=== PATIENT | male | born 1950 | race Caucasian/White ===

== ENCOUNTER 2020-11-14 18:34 | Emergency (ER) | payer BC, OTHER ==
[2020-11-14 19:17] LABS: Absolute Lymphocytes (CBC) 0.8 K/uL (0.7-4.9); Basophils % 1.2 % (0-1.3); Hematocrit 26.8 % (39.6-49.0); Lymphocytes % 9.6 % (15.3-44.8); MPV 8.4 fL (7.6-11.3)
[2020-11-14 19:27] LABS: Protime INR 1.28
[2020-11-14 19:40] LABS: AST/SGOT 21 U/L (15-37); Albumin 2.7 g/dL (3.4-5.0); Alkaline Phosphatase 69 U/L (45-117); BUN Blood Urea Nitrogen 19 mg/dL (7-18); Bicarbonate 28 mmol/L (21-32); Bilirubin Direct 0.2 mg/dL (0-0.2); Bilirubin Total 0.7 mg/dL (0.2-1.0); Glucose Level 103 mg/dL (74-106); Magnesium 1.8 mg/dL (1.8-2.4); NT PRO-BNP 952 pg/mL (<125); Potassium 3.3 mmol/L (3.5-5.1); Protein, Total 7.1 g/dL (6.4-8.2); Sodium Level 140 mmol/L (136-145); Troponin (Emerg Dept Use Only) < 0.02 ng/mL (0.0-0.045)
[2020-11-14] MEDS ORDERED: NA CHLORIDE 0.9% 250 ML ONE (19:40)
--- NOTE | 2020-11-14 19:47 | RAD REPORT ---
EXAM DESCRIPTION: RAD - Chest Single View - 11/14/2020 7:10 pm CLINICAL HISTORY: dizziness Chest pain. COMPARISON: No comparisons FINDINGS: Portable technique limits examination quality. Elevated hemidiaphragm is noted related to underlying gaseous distention in the colon. The lungs appe ar grossly clear. Patient is mildly rotated to the left which mildly limits assessment. Heart size is upper limit normal. Right-sided dialysis catheter has tip in the right atrium. IMPRESSION: No acute intrathoracic process suspected.
[2020-11-14 20:00] LABS: ALT/SGPT < 6 U/L (12-78)
--- NOTE | 2020-11-14 21:07 | ER ---
Nurse's Notes [facility] Name: Anthony Patel Age: 70 yrs Sex: Male : 1950 Arrival Date: 11/14/2020 Time: 18:35 Bed 6 Private MD: Diagnosis: Dizziness and giddiness Presentation: 11/14 18:41 Chief complaint: EMS states: Pt c/o dizziness and SOB during dialysis, 300 mL dialyzed, ph COVID positive on 10/30, negative swab approx 2 days ago, upon EMS arrival dizziness and SOB had resolved, 98% RA, HR 110 sinus tach, BP 198/85. Coronavirus screen: The client reports previous COVID testing was negative. Ebola Screen: No symptoms or risks identified at this time. Initial Sepsis Screen: Does the patient meet any 2 criteria? No. Patient's initial sepsis screen is negative. Does the patient have a suspected source of infection? No. Patient's initial sepsis screen is negative. Risk Assessment: Do you want to hurt yourself or someone else? Patient reports no desire to harm self or others. Onset of symptoms was November 14, 2020. 18:41 Method Of Arrival: EMS: [place] [facility] ph 18:41 Acuity: RONAL 3 ph Historical: - Allergies: 18:51 No Known Allergies; ph - Home Meds: 18:51 Carbidopa-Levodopa 1.25 - 5mg/mL 20 mL 3 x day Oral [Active]; Trihexyphenidyl Oral ph [Active]; pantoprazole 40 mg oral TbEC 1 tab 2 times per day [Active]; - PMHx: 18:51 Dialysis; Hypertension; BPH; Parkinsons; ph - Immunization history:: Adult Immunizations unknown. - Social history:: Smoking status: unknown. Screenin:44 Abuse screen: Denies threats or abuse. Denies injuries from another. Nutritional ph screening: No deficits noted. Tuberculosis screening: No symptoms or risk factors identified. Fall Risk None identified. Assessment: 18:52 General: Appears in no apparent distress. slender, Behavior is calm, cooperative, ph appropriate for age. Pain: Denies pain. Neuro: Level of Consciousness is awake, alert, obeys commands, Oriented to person, place, situation, tremor noted, hx of Parkinsons. Cardiovascular: Capillary refill < 3 seconds in bilateral fingers Patient's skin is warm and dry. Dialysis shunt: in the anterior aspect of right upper chest. Respiratory: Airway is patent Respiratory effort is even, unlabored, Respiratory pattern is tachypnea. GI: Reports diarrhea, Patient currently denies abdominal pain. Derm: Skin is intact, Skin is pink, warm \T\ dry. Musculoskeletal: Circulation, motion, and sensation intact. Range of motion: intact in all extremities. 19:50 Reassessment: Patient appears in no apparent distress at this time. Patient and/or mg2 family updated on plan of care and expected duration. Pain level reassessed. Patient is alert, oriented x 3, equal unlabored respirations, skin warm/dry/pink. 20:25 Reassessment: Patient appears in no apparent distress at this time. Patient and/or mg2 family updated on plan of care and expected duration. Pain level reassessed. Patient is alert, oriented x 3, equal unlabored respirations, skin warm/dry/pink. 21:35 Reassessment: from [place] contacted about the transportation and she said she mg2 can't come to [place] to pick her up and he needs to be in an ambulance (stretcher) because he can't tolerate sitting for long time. he is recovering from rhabdomyolysis. 22:14 Reassessment: EMS will come after 2 hours. patient informed about the waiting time. mg2 23:32 Reassessment: report given to [facility] ambulance. patient alert oriented x 4. mg2 Vital Signs: 18:41 BP 139 / 93; Pulse 113; Resp 22; Temp 97.5(O); Pulse Ox 98% on R/A; ph 20:26 BP 136 / 92; Pulse 102; Resp 20; Pulse Ox 98% on 2 lpm NC; mg2 21:30 Pulse Ox 100% on R/A; mg2 23:30 BP 135 / 89; Pulse 95; Resp 18; Pulse Ox 100% on R/A; mg2 ED Course: 18:35 Patient arrived in ED. ds1 18:42 Aldo Gutierrez NP is PHCP. pm1 18:42 Steven Barrett MD is Attending Physician. pm1 18:44 Triage completed. ph 18:45 Arm band placed on Patient placed in an exam room, on a stretcher. ph 18:51 Patient has correct armband on for positive identification. Placed in gown. Bed in low ph position. Call light in reach. Side rails up X 1. telemetry monitor on. Pulse ox on. NIBP on. Door closed. Noise minimized. Warm blanket given. 19:01 Initial lab(s) drawn, by me, sent to lab. Inserted saline lock: 20 gauge in right dh3 antecubital area, using aseptic technique. Blood collected. 19:09 XRAY Chest (1 view) In Process Unspecified. EDMS 19:23 Suhas Romano, RN is Primary Nurse. mg2 19:34 Rina Mcguire ex abhay [phone]. patients mother Efren [phone]. mw2 23:34 No provider procedures requiring assistance completed. IV discontinued, intact, mg2 bleeding controlled, No redness/swelling at site. Pressure dressing applied. Administered Medications: 19:25 Drug: NS 0.9% 250 ml Route: IV; Rate: bolus; Site: right forearm; mg2 21:39 Follow up: Response: No adverse reaction; IV Status: Completed infusion; IV Intake: mg2 250ml Intake: 21:39 IV: 250ml; Total: 250ml. mg2 Outcome: 21:06 Discharge ordered by . pm1 23:34 Discharged to home via ambulance. mg2 23:34 Condition: stable 23:34 Discharge instructions given to patient, EMS, Instructed on discharge instructions, follow up and referral plans. Demonstrated understanding of instructions, follow-up care. 23:34 Patient left the ED. mg2 Signatures: Dispatcher [employer] EDPR Nathaly Sam ds1 Toyin Zacarias RN RN Aldo Gutierrez, DELFINO [employer] pm1 V[facility] Camila Garcia 2 Suhas Romano, RN RN mg2 Corrections: (The following items were deleted from the chart) 22:51 22:14 Reassessment: EMS will come after 2 hours. mg2 mg2
--- NOTE | 2020-11-14 21:07 | EDPHYS ---
Physician Documentation [facility] Name: Anthony Patel Age: 70 yrs Sex: Male : 1950 Arrival Date: 11/14/2020 Time: 18:35 Bed 6 Private MD: JOE Physician Steven Barrett HPI: 11/14 18:46 This 70 yrs old Male presents to ER via EMS with complaints of Dizziness. pm1 18:46 The patient presents with dizziness, and shortness of breath during dialysis. Onset: pm1 The symptoms/episode began/occurred today. Context: occurred dialysis center, occurred while the patient was sitting, just prior to the episode the patient experienced no apparent symptoms. Modifying factors: The symptoms are alleviated by nothing, the symptoms are aggravated by nothing. Associated signs and symptoms: Pertinent positives: shortness of breath, Pertinent negatives: abdominal pain, chest pain, nausea, vomiting. Severity of symptoms: in the emergency department the symptoms have improved. The patient has not experienced similar symptoms in the past. 18:46 Patient reports that they took off more fluids than they typically perform at dialysis .pm1 Historical: - Allergies: 18:51 No Known Allergies; ph - Home Meds: 18:51 Carbidopa-Levodopa 1.25 - 5mg/mL 20 mL 3 x day Oral [Active]; Trihexyphenidyl Oral ph [Active]; pantoprazole 40 mg oral TbEC 1 tab 2 times per day [Active]; - PMHx: 18:51 Dialysis; Hypertension; BPH; Parkinsons; ph - Immunization history:: Adult Immunizations unknown. - Social history:: Smoking status: unknown. ROS: 18:53 Constitutional: Negative for fever, chills, and weight loss, Cardiovascular: Negative pm1 for chest pain, palpitations, and edema, Abdomen/GI: Negative for abdominal pain, nausea, vomiting, diarrhea, and constipation, Back: Negative for injury and pain, MS/Extremity: Negative for injury and deformity, Skin: Negative for injury, rash, and discoloration. 18:53 Respiratory: Positive for shortness of breath, Negative for cough. 18:53 Neuro: Positive for dizziness, Negative for numbness, tingling, weakness. Exam: 18:53 Constitutional: This is a well developed, well nourished patient who is awake, alert, pm1 and in no acute distress. Head/Face: Normocephalic, atraumatic. 18:53 Abdomen/GI: Soft, non-tender, with normal bowel sounds. No distension or tympany. No guarding or rebound. No evidence of tenderness throughout. Back: No spinal tenderness. No costovertebral tenderness. Full range of motion. 18:53 Skin: Warm, dry with normal turgor. Normal color with no rashes, no lesions, and no evidence of cellulitis. MS/ Extremity: Pulses equal, no cyanosis. Neurovascular intact. Full, normal range of motion. 18:53 Cardiovascular: Exam negative for acute changes, Rate: normal, Rhythm: regular, Pulses: no pulse deficits are appreciated, Heart sounds: normal, Edema: is not appreciated. 18:53 Respiratory: Exam negative for acute changes, respiratory distress, shortness of breath, Breath sounds: are clear throughout. 18:53 Neuro: Exam negative for acute changes, Orientation: is normal, Mentation: is normal, Motor: is normal, moves all fours. Vital Signs: 18:41 BP 139 / 93; Pulse 113; Resp 22; Temp 97.5(O); Pulse Ox 98% on R/A; ph 20:26 BP 136 / 92; Pulse 102; Resp 20; Pulse Ox 98% on 2 lpm NC; mg2 21:30 Pulse Ox 100% on R/A; mg2 23:30 BP 135 / 89; Pulse 95; Resp 18; Pulse Ox 100% on R/A; mg2 MDM: 18:46 Patient medically screened. pm1 21:05 Data reviewed: vital signs. Data interpreted: Pulse oximetry: on room air is 98 %. pm1 Interpretation: normal. Counseling: I had a detailed discussion with the patient and/or guardian regarding: the historical points, exam findings, and any diagnostic results supporting the discharge/admit diagnosis, lab results, radiology results, the need for outpatient follow up, to return to the emergency department if symptoms worsen or persist or if there are any questions or concerns that arise at home. 11/14 18:48 Order name: Basic Metabolic Panel; Complete Time: 20:32 pm1 11/14 18:48 Order name: CBC with Diff; Complete Time: 19:34 pm1 11/14 18:48 Order name: LFT's; Complete Time: 20:32 pm1 11/14 18:48 Order name: Magnesium; Complete Time: 20:32 pm1 11/14 18:48 Order name: NT PRO-BNP; Complete Time: 20:32 pm1 11/14 18:48 Order name: PT-INR; Complete Time: 19:34 pm1 11/14 18:48 Order name: Troponin (emerg Dept Use Only); Complete Time: 20:32 pm1 11/14 18:48 Order name: XRAY Chest (1 view); Complete Time: 19:50 pm11/14 18:48 Order name: EKG; Complete Time: 18:48 pm11/14 18:48 Order name: Cardiac monitoring; Complete Time: 18:51 pm1 11/14 18:48 Order name: EKG - Nurse/Tech; Complete Time: 18:51 pm11/14 18:48 Order name: IV Saline Lock; Complete Time: 19:04 pm11/14 18:48 Order name: Labs collected and sent; Complete Time: 19:04 pm11/14 18:48 Order name: O2 Per Protocol; Complete Time: 18:51 pm11/14 18:48 Order name: O2 Sat Monitoring; Complete Time: 18:51 pm1 Administered Medications: 19:25 Drug: NS 0.9% 250 ml Route: IV; Rate: bolus; Site: right forearm; mg2 21:39 Follow up: Response: No adverse reaction; IV Status: Completed infusion; IV Intake: mg2 250ml Disposition: 11/15 14:37 Co-signature as Attending Physician, Steven Barrett MD I agree with the assessment and danika plan of care. Disposition: 11/14/20 21:06 Discharged to Home. Impression: Dizziness and giddiness. - Condition is Stable. - Discharge Instructions: Dizziness. - Medication Reconciliation Form, Thank You Letter, Antibiotic Education, Prescription Opioid Use form. - Follow up: Emergency Department; When: As needed; Reason: Worsening of condition. Follow up: Private Physician; When: 2 - 3 days; Reason: Recheck today's complaints, Continuance of care, Re-evaluation by your physician. - Problem is new. - Symptoms have improved. Signatures: Dispatcher [employer] Steven San MD MD cha Hall, Patricia, RN RN ph Aldo Gutierrez, BATH STEWARD/STEWARDESS BATH STEWARD/STEWARDESS pm1 Gardose, Suhas, RN RN mg2 Corrections: (The following items were deleted from the chart) 11/14 23:34 21:06 11/14/2020 21:06 Discharged to Home. Impression: Dizziness and giddiness. mg2 Condition is Stable. Forms are Medication Reconciliation Form, Thank You Letter, Antibiotic Education, Prescription Opioid Use. Follow up: Emergency Department; When: As needed; Reason: Worsening of condition. Follow up: Private Physician; When: 2 - 3 days; Reason: Recheck today's complaints, Continuance of care, Re-evaluation by your physician. Problem is new. Symptoms have improved. pm1
[2020-11-14 23:39] VITALS: TEMP 97.5
[2020-11-14 23:41] VITALS: O2SAT 100
[2020-11-14 23:43] VITALS: BP 135/89
--- NOTE | 2020-11-15 07:54 | EKG ---
Test Date: 2020-11-14 Test Time: 18:33:38 Science Manager: OANH MEASUREMENT RESULTS: Intervals: Rate: 111 FL: 140 QRSD: 72 QT: 320 QTc: 435 Letts: P: 74 FL: 140 QRS: 38 T: 59 INTERPRETIVE STATEMENTS: Sinus tachycardia Nonspecific ST abnormality Abnormal ECG No previous ECG available for comparison Electronically Signed On 11-15-20 07:52:56 SENIOR [employer] PROGRAMMER by Nicolas Cardenas
== END 2020-11-14 23:34 | disposition home or self-care (01) ==
LOC: ER 18:34
DX: R42 Dizziness and giddiness (principal); R06.02 Shortness of breath; Z99.2 Dependence on renal dialysis; I10 Essential (primary) hypertension; G20 Parkinson's disease
CPT/HCPCS: 96365; 93005; 85025; 80048; 36415; 83735; 85610; 80076; 84484; 83880; 71045; 99284; 96366; J7050